=== PATIENT | female | born 1995 | race Two or more races ===

== ENCOUNTER → 2022-02-14 | Emergency (ER) | payer SELFPAY ==
[~2022-02-14] VITALS: Ht 165.1 cm; Wt 80.7 kg
[~2022-02-14] MED LIST: IBUP-1955 PO
--- NOTE | 2022-02-14 11:40 | NUR ---
PT STATES SHE IS CURRENTLY ON HER MENSTRUAL PERIOD. WAIVER SIGNED. RADIOLOGY CALLED FOR HEAD AND C SPINE CT SCAN.
--- NOTE | 2022-02-14 11:50 | NUR ---
PT TO CT AT THIS TIME
[2022-02-14 13:07] VITALS: BP 122/80
--- NOTE | 2022-02-14 13:09 | NUR ---
Patient discharged to home in stable condition. Written and verbal after care instructions given. Patient verbalizes understanding of instruction.
== END | disposition home or self-care (01) ==
LOC: ER 11:29
DX: R51.9 Headache, unspecified (principal); M54.2 Cervicalgia; Z79.1 Long term (current) use of non-steroidal anti-inflammatories (NSAID)
CPT/HCPCS: 99284; 72125; 70450; J7030